=== PATIENT | male | born 1975 | race Caucasian/White ===

== ENCOUNTER 2017-07-01 00:09 | Day surgery (SDC) | payer MEDICARE, OTHER | END 2017-07-01 16:47 | disposition home or self-care (01) | LOC: WOUND 00:09 | PROC: 0HBLXZZ Excision of Left Lower Leg Skin, External Approach (ICD-10-PCS; principal; 2017-07-01) | DX: L89.899 Pressure ulcer of other site, unspecified stage (principal); E10.22 Type 1 diabetes mellitus with diabetic chronic kidney disease; I12.9 Hypertensive chronic kidney disease with stage 1 through stage 4 chronic kidney disease, or unspecified chronic kidney disease; N18.3 Chronic kidney disease, stage 3 (moderate); Z89.512 Acquired absence of left leg below knee | CPT/HCPCS: G0463 ==

== ENCOUNTER 2017-07-08 14:25 | Day surgery (SDC) | payer MEDICARE, OTHER | END 2017-07-08 23:08 | disposition home or self-care (01) | LOC: WOUND 14:25 | DX: Z48.00 Encounter for change or removal of nonsurgical wound dressing (principal); L89.899 Pressure ulcer of other site, unspecified stage; E10.622 Type 1 diabetes mellitus with other skin ulcer; E10.22 Type 1 diabetes mellitus with diabetic chronic kidney disease; I12.9 Hypertensive chronic kidney disease with stage 1 through stage 4 chronic kidney disease, or unspecified chronic kidney disease; N18.3 Chronic kidney disease, stage 3 (moderate); E10.40 Type 1 diabetes mellitus with diabetic neuropathy, unspecified; Z89.512 Acquired absence of left leg below knee | CPT/HCPCS: G0463 ==

== ENCOUNTER 2017-07-17 08:07 | Day surgery (SDC) | payer MEDICARE, OTHER | END 2017-07-17 22:46 | disposition home or self-care (01) | LOC: WOUND 08:07 | DX: Z48.00 Encounter for change or removal of nonsurgical wound dressing (principal); L89.899 Pressure ulcer of other site, unspecified stage; E10.22 Type 1 diabetes mellitus with diabetic chronic kidney disease; I12.9 Hypertensive chronic kidney disease with stage 1 through stage 4 chronic kidney disease, or unspecified chronic kidney disease; N18.3 Chronic kidney disease, stage 3 (moderate); Z89.512 Acquired absence of left leg below knee | CPT/HCPCS: G0463 ==

== ENCOUNTER 2017-07-22 14:00 | Day surgery (SDC) | payer MEDICARE | END 2017-07-22 23:21 | disposition home or self-care (01) | LOC: WOUND 14:00 | DX: Z48.00 Encounter for change or removal of nonsurgical wound dressing (principal); L89.899 Pressure ulcer of other site, unspecified stage; E10.9 Type 1 diabetes mellitus without complications; I11.9 Hypertensive heart disease without heart failure; N18.3 Chronic kidney disease, stage 3 (moderate) | CPT/HCPCS: G0463 ==

== ENCOUNTER 2017-09-05 08:00 | Day surgery (SDC) | payer MEDICARE | END 2017-09-05 09:51 | disposition home or self-care (01) | LOC: WOUND 08:00 | DX: Z48.00 Encounter for change or removal of nonsurgical wound dressing (principal); L89.899 Pressure ulcer of other site, unspecified stage; I12.9 Hypertensive chronic kidney disease with stage 1 through stage 4 chronic kidney disease, or unspecified chronic kidney disease; E11.22 Type 2 diabetes mellitus with diabetic chronic kidney disease; N18.3 Chronic kidney disease, stage 3 (moderate); Z89.512 Acquired absence of left leg below knee | CPT/HCPCS: 87070; 87075; 87077; 87147; 87186; 87205; G0463 ==

== ENCOUNTER 2017-09-12 11:15 | Day surgery (SDC) | payer MEDICARE | END 2017-09-12 12:27 | disposition home or self-care (01) | LOC: WOUND 11:15 | PROC: 0HBLXZZ Excision of Left Lower Leg Skin, External Approach (ICD-10-PCS; principal; 2017-09-12) | DX: E11.622 Type 2 diabetes mellitus with other skin ulcer (principal); L97.822 Non-pressure chronic ulcer of other part of left lower leg with fat layer exposed; Z89.512 Acquired absence of left leg below knee; L89.899 Pressure ulcer of other site, unspecified stage; E11.22 Type 2 diabetes mellitus with diabetic chronic kidney disease; N18.3 Chronic kidney disease, stage 3 (moderate); I10 Essential (primary) hypertension | CPT/HCPCS: G0463 ==

== ENCOUNTER 2017-09-18 10:00 | Day surgery (SDC) | payer MEDICARE | END 2017-09-18 22:54 | disposition home or self-care (01) | LOC: WOUND 10:00 | DX: Z48.00 Encounter for change or removal of nonsurgical wound dressing (principal); E10.621 Type 1 diabetes mellitus with foot ulcer; L97.822 Non-pressure chronic ulcer of other part of left lower leg with fat layer exposed; L89.892 Pressure ulcer of other site, stage 2; I12.9 Hypertensive chronic kidney disease with stage 1 through stage 4 chronic kidney disease, or unspecified chronic kidney disease; N18.3 Chronic kidney disease, stage 3 (moderate); E10.22 Type 1 diabetes mellitus with diabetic chronic kidney disease | CPT/HCPCS: G0463 ==

== ENCOUNTER 2017-09-26 10:56 | Day surgery (SDC) | payer MEDICARE | END 2017-09-26 11:51 | disposition home or self-care (01) | LOC: WOUND 10:56 | PROC: 0HBLXZZ Excision of Left Lower Leg Skin, External Approach (ICD-10-PCS; principal; 2017-09-26) | DX: E10.622 Type 1 diabetes mellitus with other skin ulcer (principal); L89.892 Pressure ulcer of other site, stage 2; L97.822 Non-pressure chronic ulcer of other part of left lower leg with fat layer exposed; E10.22 Type 1 diabetes mellitus with diabetic chronic kidney disease; I12.9 Hypertensive chronic kidney disease with stage 1 through stage 4 chronic kidney disease, or unspecified chronic kidney disease; N18.3 Chronic kidney disease, stage 3 (moderate); Z89.512 Acquired absence of left leg below knee | CPT/HCPCS: G0463 ==

== ENCOUNTER 2017-10-09 11:15 | Day surgery (SDC) | payer MEDICARE | END 2017-10-09 12:28 | disposition home or self-care (01) | LOC: WOUND 11:15 | DX: Z48.00 Encounter for change or removal of nonsurgical wound dressing (principal); L89.899 Pressure ulcer of other site, unspecified stage; I12.9 Hypertensive chronic kidney disease with stage 1 through stage 4 chronic kidney disease, or unspecified chronic kidney disease; E10.22 Type 1 diabetes mellitus with diabetic chronic kidney disease; N18.3 Chronic kidney disease, stage 3 (moderate); Z22.322 Carrier or suspected carrier of Methicillin resistant Staphylococcus aureus | CPT/HCPCS: G0463 ==

== ENCOUNTER 2017-10-25 16:53 | Day surgery (SDC) | payer MEDICARE, OTHER | END 2017-10-25 22:43 | disposition home or self-care (01) | LOC: WOUND 16:53 | DX: Z48.00 Encounter for change or removal of nonsurgical wound dressing (principal); L89.899 Pressure ulcer of other site, unspecified stage; E10.622 Type 1 diabetes mellitus with other skin ulcer; E10.22 Type 1 diabetes mellitus with diabetic chronic kidney disease; I12.9 Hypertensive chronic kidney disease with stage 1 through stage 4 chronic kidney disease, or unspecified chronic kidney disease; N18.3 Chronic kidney disease, stage 3 (moderate); E10.40 Type 1 diabetes mellitus with diabetic neuropathy, unspecified; Z22.322 Carrier or suspected carrier of Methicillin resistant Staphylococcus aureus; Z89.512 Acquired absence of left leg below knee | CPT/HCPCS: G0463 ==

== ENCOUNTER 2018-11-10 11:14 | Day surgery (SDC) | payer MEDICARE, SELFPAY ==
[~2018-11-10] VITALS: Ht 177.8 cm; Wt 89.2 kg
[2018-11-10] MEDS ORDERED: Humalog Mi100 UNIT/4 (12:30)
[2018-11-10] MEDS ORDERED: METO50 PO (12:30)
[2018-11-10] MEDS ORDERED: LOSARTAN-HCTZ1 EACH PO (12:31)
[2018-11-10] MEDS ORDERED: FURO40 PO (12:31)
[2018-11-10] MEDS ORDERED: INSULIN PEN NE1 EACH MC (12:32)
[2018-11-10] MEDS ORDERED: BASAGLAR K100 UNIT/1 (12:33)
[2018-11-10] MEDS ORDERED: ACID REDUCER 1150 MG PO (12:34)
[2018-11-10] MEDS ORDERED: Metoclopramide10 MG PO (12:34)
[2018-11-10] MEDS ORDERED: PANTOPRAZOLE SO40 M1 PO (12:35)
[2018-11-10] MEDS ORDERED: ZYRTEC10 M2 PO (12:36)
--- NOTE | 2018-11-10 13:41 | NUR ---
11/10/18 1341 [employer] PT REFUSES ANY ORAL INTAKE IN STEP DOWN.
== END 2018-11-10 13:41 | disposition home or self-care (01) ==
LOC: ORSCSDS 11:14
PROVIDERS: Internal Medicine Gastroenterology
PROC: 0DBK8ZX Excision of Ascending Colon, Via Natural or Artificial Opening Endoscopic, Diagnostic (ICD-10-PCS; principal; 2018-11-10 12:45)
PROC: 0DB98ZX Excision of Duodenum, Via Natural or Artificial Opening Endoscopic, Diagnostic (ICD-10-PCS; principal; 2018-11-10 12:45)
PROC: 0DB68ZX Excision of Stomach, Via Natural or Artificial Opening Endoscopic, Diagnostic (ICD-10-PCS; principal; 2018-11-10 12:45)
PROC: 0DBE8ZX Excision of Large Intestine, Via Natural or Artificial Opening Endoscopic, Diagnostic (ICD-10-PCS; principal; 2018-11-10 12:45)
DX: R19.7 Diarrhea, unspecified (principal); D12.2 Benign neoplasm of ascending colon; K29.70 Gastritis, unspecified, without bleeding; K52.9 Noninfective gastroenteritis and colitis, unspecified; I10 Essential (primary) hypertension; E10.40 Type 1 diabetes mellitus with diabetic neuropathy, unspecified; E10.21 Type 1 diabetes mellitus with diabetic nephropathy; E10.319 Type 1 diabetes mellitus with unspecified diabetic retinopathy without macular edema; Z79.4 Long term (current) use of insulin; Z79.899 Other long term (current) drug therapy
CPT/HCPCS: 82947; 88305; 88342; J2704; J7120

== ENCOUNTER 2020-11-22 07:19 | Day surgery (SDC) | payer MEDICARE ==
[~2020-11-22] VITALS: Ht 177.8 cm; Wt 92.3 kg
[~2020-11-22 07:19] MED LIST: ACID REDUCER 1150 MG PO; BASAGLAR K100 UNIT/1; CIME400 PO; FURO40 PO; GABA300 PO; Humalog Mi100 UNIT/4; INSPUMP; INSULIN PEN NE1 EACH MC; LOSA50 PO; LOSARTAN-HCTZ1 EACH PO; METO50 PO; MULVITA PO; Metoclopramide10 MG PO; PANTOPRAZOLE SO40 M1 PO; ZYRTEC10 M2 PO
--- NOTE | 2020-11-22 08:17 | NUR ---
History, Chart, Medications and Allergies reviewed before start of procedure. Lungs clear T/O to Auscultation. Patient confirms NPO status and agrees with scheduled surgery. Pre-Op teaching done. Pt verbalizes understanding. Patient reports completing Chlorhexadine shower X2 prior to admission to hospital.
--- NOTE | 2020-11-22 10:06 | NUR ---
11/22/20 Babak6 Mary Pina NO SPECIMEN.
--- NOTE | 2020-11-22 11:08 | NUR ---
Discharge instructions reviewed with patient. Patient verbalizes understanding. Copy given to patient to take home. History, Chart, Medications and Allergies reviewed before start of procedure.Patient States Post-Procedure ride home has been arranged. Discharged via wheelchair to private car for ride home.
== END 2020-11-22 11:34 | disposition home or self-care (01) ==
LOC: ORSCMMR 07:19 → ORD 08:30 → ORSCMMR 08:30
PROVIDERS: Surgery
PROC: 0WQF0ZZ Repair Abdominal Wall, Open Approach (ICD-10-PCS; principal; 2020-11-22 08:30)
DX: K42.0 Umbilical hernia with obstruction, without gangrene (principal); E10.22 Type 1 diabetes mellitus with diabetic chronic kidney disease; N18.4 Chronic kidney disease, stage 4 (severe); I10 Essential (primary) hypertension; Z79.4 Long term (current) use of insulin; Z79.899 Other long term (current) drug therapy
CPT/HCPCS: 82947; A9270; J0690; J2250; J2405; J2704; J2765; J3010; J7120

== ENCOUNTER → 2021-01-25 | Outpatient (CLI) | payer MEDICARE | END | disposition home or self-care (01) | LOC: LAB SHORT 08:07 | DX: L57.0 Actinic keratosis (principal) | CPT/HCPCS: 88305 ==